=== PATIENT | female | born 1955 | race Caucasian/White ===

== ENCOUNTER 2017-10-12 07:05 | Day surgery (SDC) | payer BC, OTHER ==
[2017-10-12] MEDS ORDERED: PROPOFOL 20 ML ONE ×2 (07:14)
[2017-10-12] MEDS ORDERED: LIDOCAINE HCL/PF 2% SDV 5ML VIAL ONE (07:24)
[2017-10-12 09:17] VITALS: TEMP 98
[2017-10-12 09:18] VITALS: BP 117/66; PULSE 64
--- NOTE | 2017-10-14 14:57 | PATH ---
Surgical Pathology Report Patient Name: HAILEY BAUTISTA [facility]. Rec. #: [id number] /Age/Gender: 1955 (Age: 61) / F Account: [id number] Location: [facility]-ENDOSCOPY Taken: 10/12/2017 Received: 10/12/2017 Reported: 10/14/2017 Physicians: Keegan James M.D. Specimen(s) Received PROXIMAL RIGHT COLON Clinical History Family history of colon cancer Postoperative diagnosis: Polyp Final Diagnosis RIGHT COLON, POLYP, BIOPSY: TUBULAR ADENOMA. Electronically Signed Pauline Merlos M.D. Gross Description Received in formalin, labeled "proximal right colon" is a maloney, irregular portion of soft tissue measuring 0.3 cm. in greatest dimension. The specimen is submitted in toto in one cassette. /10/13/201710/13/2017
== END 2017-10-12 09:30 | disposition home or self-care (01) ==
LOC: FASU-ENDO 07:05
PROVIDERS: ATTEND Internal Medicine Gastroenterology
PROC: 0DBK8ZX Excision of Ascending Colon, Via Natural or Artificial Opening Endoscopic, Diagnostic (ICD-10-PCS; principal; 2017-10-12 08:26)
DX: Z12.11 Encounter for screening for malignant neoplasm of colon (principal); Z80.0 Family history of malignant neoplasm of digestive organs; D12.2 Benign neoplasm of ascending colon
CPT/HCPCS: 88305-TC

== ENCOUNTER 2022-09-29 09:01 | Day surgery (SDC) | payer BC, OTHER ==
[2022-09-26 09:42] VITALS: BMI 19.6
[2022-09-29 09:27] VITALS: RESP 18; TEMP 97.7
[2022-09-29 11:15] VITALS: BP 100/61; PULSE 61
== END 2022-09-29 11:30 | disposition home or self-care (01) ==
LOC: FASU-ENDO 09:01
PROVIDERS: ATTEND Internal Medicine Gastroenterology
PROC: 0DBK8ZX Excision of Ascending Colon, Via Natural or Artificial Opening Endoscopic, Diagnostic (ICD-10-PCS; principal; 2022-09-29 10:21)
DX: Z12.11 Encounter for screening for malignant neoplasm of colon (principal); D12.2 Benign neoplasm of ascending colon; Z86.010 Personal history of colon polyps; Z80.0 Family history of malignant neoplasm of digestive organs
CPT/HCPCS: 88305-TC